=== PATIENT | female | born 1990 | race Caucasian/White ===

== ENCOUNTER 2023-08-24 10:51 | Emergency (ER) | payer OTHER ==
[~2023-08-24] VITALS: Ht 165.1 cm; Wt 54.5 kg
[~2023-08-24 10:51] MED LIST: CLON-595 PO; FLUO-177 PO; LURA40TA2 PO
[2023-08-24 10:57] VITALS: TEMP 98.4
[2023-08-24 12:15] LABS: APPEARANCE,URINE HAZY (CLEAR); BILIRUBIN,URINE NEGATIVE (NEGATIVE); COLOR,URINE LIGHT YELLOW (YELLOW); GLUCOSE, URINE (UA) NEGATIVE (NEGATIVE); KETONES,URINE NEGATIVE (NEGATIVE); LEUKOCYTE ESTERASE ,URINE SMALL (NEGATIVE); NITRATE,URINE NEGATIVE (NEGATIVE); OCCULT BLOOD,URINE NEGATIVE (NEGATIVE); PROTEIN,URINE NEGATIVE (NEGATIVE); SPECIFIC GRAVITIY, URINE 1.011 (1.003-1.030); UROBILINOGEN,URINE <=1.0 mg/dL (<=1.0)
[2023-08-24] MEDS ORDERED: PERTUSS(ACELL),DIPH,TET VAC/PF 0.5 ML SYRINGE IM. ONE (12:15)
[2023-08-24 12:29] LABS: ALCOHOL, URINE DRUG SCREEN NEGATIVE (NEGATIVE); BARBITURATE SCREEN, URINE NEGATIVE (NEGATIVE); BENZODIAZEPINES SCREEN,URINE NEGATIVE (NEGATIVE); CANNABINOID SCREEN,URINE POSITIVE (NEGATIVE); COCAINE SCREEN,URINE NEGATIVE (NEGATIVE); METHADONE SCREEN, URINE POSITIVE (NEGATIVE); OPIATE SCREEN,URINE NEGATIVE (NEGATIVE); PHENCYCLIDINE SCREEN,URINE NEGATIVE (NEGATIVE)
[2023-08-24 13:27] LABS: AMPHET/METH SCREEN,URINE NEGATIVE (NEGATIVE)
[2023-08-24 13:30] LABS: RBC,URINE None Seen /HPF (0-2)
[2023-08-24 13:31] LABS: BACTERIA,URINE Moderate /HPF (None Seen)
[2023-08-24 15:00] VITALS: BP 108/57; PULSE 94; RESP 16
[2023-08-24] MEDS ORDERED: HydrOXYzine HCL 25 MG TABLET PO ONE (16:45)
== END 2023-08-24 19:10 | disposition home or self-care (01) ==
LOC: EMS 10:53
DX: M79.642 Pain in left hand (principal); T40.415A Adverse effect of fentanyl or fentanyl analogs, initial encounter; F31.9 Bipolar disorder, unspecified; F20.9 Schizophrenia, unspecified; F17.210 Nicotine dependence, cigarettes, uncomplicated; F15.90 Other stimulant use, unspecified, uncomplicated; Z98.890 Other specified postprocedural states; Z90.89 Acquired absence of other organs; Z88.8 Allergy status to other drugs, medicaments and biological substances; Z59.00 Homelessness unspecified; Y92.89 Other specified places as the place of occurrence of the external cause
CPT/HCPCS: 80307; 81001; 87086; 87186; 99283